=== PATIENT | female | born 1955 | race Caucasian/White ===

== ENCOUNTER 2017-06-18 09:47 | Emergency (ER) | payer BC, OTHER ==
--- NOTE | 2017-06-18 10:03 | ED PDOC ---
Arrival/HPI - General Chief Complaint: Abnormal Skin Integrity Time Seen by Provider: 06/18/17 09:53 Historian: Patient - History of Present Illness Narrative History of Present Illness (Text): 06/18/17 09:59 62 y/o female, no significant pmh, nkda, c/o itching rash all over the body x 2 days after possible insect bite. Itching rash, no fever or chills, no change in soap/clothing/detergent, no night sweat, no numbness or tingling, no bodyache , no joint pain, no change in soap/clothing/detergent, no other medical or psychological complaints. Past Medical History - Provider Review Nursing Documentation Reviewed: Yes - Infectious Disease Hx of Infectious Diseases: None - Reproductive Menopause: Yes - Psychiatric Hx Substance Use: No - Anesthesia Hx Anesthesia: No Hx Anesthesia Reactions: No Hx Malignant Hyperthermia: No Family/Social History - Physician Review Nursing Documentation Reviewed: Yes Family/Social History: Unknown Family HX Smoking Status: Never Smoked Hx Alcohol Use: No Hx Substance Use: No Allergies/Home Meds Allergies/Adverse Reactions: Allergies No Known Allergies Allergy (Verified 06/18/17 10:00) Review of Systems - Review of Systems Constitutional: absent: Fatigue, Fevers Eyes: absent: Vision Changes ENT: absent: Hearing Changes Respiratory: absent: SOB, Cough Cardiovascular: absent: Chest Pain Gastrointestinal: absent: Abdominal Pain, Diarrhea, Nausea, Vomiting Skin: Rash, Pruritis, Skin Lesions. absent: Laceration, Abscess, Ulcer, Cellulitis Neurological: absent: Headache Physical Exam Vital Signs Reviewed: Yes Vital Signs Temp Pulse Resp BP Pulse Ox 06/18/17 09:54 98.6 F 72 20 126/84 99 Temperature: Afebrile Blood Pressure: Normal Pulse: Regular Respiratory Rate: Normal Appearance: Positive for: Well-Appearing, Non-Toxic, Comfortable Pain Distress: None Mental Status: Positive for: Alert and Oriented X 3 - Systems Exam Head: Present: Atraumatic, Normocephalic Pupils: Present: PERRL Extroacular Muscles: Present: EOMI Conjunctiva: Present: Normal Mouth: Present: Moist Mucous Membranes Neck: Present: Normal Range of Motion Respiratory/Chest: Present: Clear to Auscultation, Good Air Exchange. No: Respiratory Distress, Accessory Muscle Use Cardiovascular: Present: Regular Rate and Rhythm, Normal S1, S2. No: Murmurs Abdomen: Present: Normal Bowel Sounds. No: Tenderness, Distention, Peritoneal Signs Back: Present: Normal Inspection Upper Extremity: Present: Normal Inspection. No: Cyanosis, Edema Lower Extremity: Present: Normal Inspection. No: Edema Neurological: Present: GCS=15, Speech Normal, Motor Func Grossly Intact, Gait Normal, Memory Normal Skin: Present: Warm, Dry, Rashes (visible patchy blanchable hives approx. [id number] noted on the bilateral upper and lower extremities/trunk/posterior neck , no periorbital swelling and no angioedema, no bullseye or target signs, no ulcers, no cellulitis or streaking. ), Normal Color Psychiatric: Present: Alert, Oriented x 3, Normal Insight, Normal Concentration Medical Decision Making ED Course and Treatment: 06/18/17 10:02 -Discharge home with benadryl, pepcid, prednisone, keep the skin cool and dry, avoid tight clothing, avoid possible allergen, follow up with your own pmd and commercial plumber within 2 days, return to the ER for any new or worsening signs or symptoms. - PA / M[employer]SM[employer] / Resident Statement / has reviewed & agrees with the documentation as recorded. Disposition/Present on Arrival - Present on Arrival Any Indicators Present on Arrival: No History of DVT/PE: No History of Uncontrolled Diabetes: No Urinary Catheter: No History of Decub. Ulcer: No History Surgical Site Infection Following: None - Disposition Have Diagnosis and Disposition been Completed?: Yes Diagnosis: Urticaria Disposition: HOME/ ROUTINE Disposition Time: 10:03 Patient Plan: Discharge Condition: GOOD Additional Instructions: -Discharge home with benadryl, pepcid, prednisone, keep the skin cool and dry, avoid tight clothing, avoid possible allergen, follow up with your own pmd and commercial plumber within 2 days, return to the ER for any new or worsening signs or symptoms. Prescriptions: DiphenhydrAMINE [Benadryl] 50 mg PO QID PRN #20 cap PRN Reason: Other Famotidine [Pepcid] 20 mg PO BID #14 tab predniSONE [Prednisone] 2 tab PO DAILY #10 tab Referrals: Lb Espinoza MD [Staff Provider] - Follow up with primary Forms: [employer] (Latvian), WORK NOTE
[2017-06-18 10:07] VITALS: BP 126/84; PULSE 72; RESP 20; TEMP 98.6; O2SAT 99; BMI 28.3
== END 2017-06-18 10:20 | disposition home or self-care (01) ==
LOC: ED 09:47
DX: L50.9 Urticaria, unspecified (principal)

== ENCOUNTER 2017-06-23 10:57 | Emergency (ER) | payer BC ==
[2017-06-23 10:57] VITALS: BMI 28.3
[2017-06-23 11:09] VITALS: TEMP 99.3; O2SAT 97
--- NOTE | 2017-06-23 11:21 | ED PDOC ---
Arrival/HPI - General Chief Complaint: Upper Extremity Problem/Injury Time Seen by Provider: 06/23/17 11:10 Historian: Patient - History of Present Illness Narrative History of Present Illness (Text): 06/23/17 11:10 Tamika Thompson is a 62 year old female, who presents to the emergency department complaining of bilateral hand pain and swelling. 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 She states the right hand is more swollen compared to the left, and has pain when making a fist. Patient denies nausea, vomiting, diarrhea, fever. Of note, patient was seen in the emergency department three days ago, evaluated for rash and was prescribed Prednisone, Pepcid, and Benadryl. She reports that the rash has resolved from the rest of her body but has persisted in some areas around her wrists. Patient reports that she was called today as courtesy after that prior ED visit and was told to come to the ED if she had pain. Time/Duration: < week Symptom Onset: Sudden Symptom Course: Unchanged Past Medical History - Provider Review Nursing Documentation Reviewed: Yes - Infectious Disease Hx of Infectious Diseases: None - Psychiatric Hx Substance Use: No - Anesthesia Hx Anesthesia: No Hx Anesthesia Reactions: No Hx Malignant Hyperthermia: No Family/Social History - Physician Review Nursing Documentation Reviewed: Yes Family/Social History: Unknown Family HX Smoking Status: Never Smoked Hx Alcohol Use: No Hx Substance Use: No Allergies/Home Meds Allergies/Adverse Reactions: Allergies Penicillins Allergy (Verified 06/23/17 11:08) SWELLING Review of Systems - Review of Systems Constitutional: absent: Fevers Respiratory: absent: SOB, Cough Cardiovascular: absent: Chest Pain, Palpitations Gastrointestinal: absent: Abdominal Pain, Diarrhea, Nausea, Vomiting Musculoskeletal: Arthralgias, Other (bilateral hand swelling and pain ). absent : Back Pain, Neck Pain, Joint Swelling Skin: Rash (resolved) Neurological: absent: Headache Physical Exam Vital Signs Reviewed: Yes Vital Signs Temp Pulse Resp BP Pulse Ox 06/23/17 12:07 86 18 113/71 97 06/23/17 11:05 99.3 F 94 H 16 115/78 97 Temperature: Afebrile Blood Pressure: Normal Pulse: Tachycardic Respiratory Rate: Normal Appearance: Positive for: Well-Appearing, Non-Toxic, Comfortable Pain Distress: None Mental Status: Positive for: Alert and Oriented X 3 - Systems Exam Head: Present: Atraumatic, Normocephalic Pupils: Present: PERRL Extroacular Muscles: Present: EOMI Mouth: Present: Moist Mucous Membranes Neck: Present: Normal Range of Motion Upper Extremity: Present: Normal Inspection, Normal ROM, NORMAL PULSES (intact) , Swelling (mild swelling on dorsum of right hand ), Neurovascularly Intact, Norm 2-Pt Discrimination, Other (mild decrease motion on right hand. NROM on left ). No: Cyanosis, Edema, Tenderness, Erythema (no warmth), Temperature Abnormalties Neurological: Present: GCS=15, CN II-XII Intact, Speech Normal Skin: Present: Warm, Dry, Normal Color. No: Rashes Psychiatric: Present: Alert, Oriented x 3, Normal Insight, Normal Concentration Medical Decision Making ED Course and Treatment: 06/23/17 Impression: 62 year old female with mild swelling on dorsum of right hand, mild decreased ROM. No tenderness, and NROM on left hand with no swelling and pulses intact. Plan: -- Bilateral hand x-ray -- Toradol -- Reassess and disposition Prior Visits: Notes and results from previous visits were reviewed. On 06/18/2017 patient came in complaining of bilateral hand pain. Patient was discharged with prescription of Prednisone, Pecid, and Benadryl. Progress Notes: 06/23/17 12:05 Hand x-ray: Creator : Doroteo James MD FINDINGS: BONES:Right Hand: No evidence of fracture Left Hand: No evidence of fracture JOINTS:Right Hand: Mild degenerative changes at the base of the thumb Left Hand: As above SOFT TISSUES: Right Hand: Normal. Left Hand: Normal. OTHER FINDINGS: None. IMPRESSION: No acute findings 06/23/17 13:20 Ultrasound negative for DVT. Patient is well appearing and afebrile. Non- traumatic injury. Neurovascularly intact. No redness. Likely overuse injury. Patient's rash is resolved. Will dc with antibiotics and PMD follow-up. - RAD Interpretation Radiology Orders: 06/23/17 11:19 HAND 3 VIEWS BI [RAD] Stat 06/23/17 12:02 DUPLEX UPPER EXTRM VEIN RIGHT [US] Stat [employer]: Radiologist - Medication Orders Current Medication Orders: Discontinued Medications Ketorolac Tromethamine (Toradol) 60 mg IM STAT STA Stop: 06/23/17 11:21 Last Admin: 06/23/17 11:29 Dose: 60 mg MAR Pain Assessment Document 06/23/17 11:29 RI (Rec: 06/23/17 11:29 RI [id number]) Pain Reassessment Is this a pain reassessment? No Sleep Is patient sleeping during reassessment? No Presence of Pain Presence of Pain Yes Pain Scale Used Pain Scale Used Numeric Location Left, Right or Bilateral Bilateral Pain Location Body Site Wrist Hand Description Description Throbbing Intensity of Pain at present 7 Acceptable Level of Pain 2 Pain Behavior Guarding Facial Grimacing Aggravating Factors Changing Position Alleviating Factors Medication IM Administration Charges Document 06/23/17 11:29 RI (Rec: 06/23/17 11:29 RI [id number]) Injection Site MAR Injection Site Left Gluteus Jean Charges for Administration # of IM Administrations 1 - Scribe Statement The provider has reviewed the documentation as recorded by the Scribe Sadaf Alba Provider Scribe Attestation: All medical record entries made by the Scribe were at my direction and personally dictated by me. I have reviewed the chart and agree that the record accurately reflects my personal performance of the history, physical exam, medical decision making, and the department course for this patient. I have also personally directed, reviewed, and agree with the discharge instructions and disposition. Disposition/Present on Arrival - Present on Arrival Any Indicators Present on Arrival: No History of DVT/PE: No History of Uncontrolled Diabetes: No Urinary Catheter: No History of Decub. Ulcer: No History Surgical Site Infection Following: None - Disposition Have Diagnosis and Disposition been Completed?: Yes Diagnosis: Hand pain Disposition: HOME/ ROUTINE Disposition Time: 13:22 Patient Plan: Discharge Patient Problems: Current Active Problems Problem Status Onset Hand pain Acute Condition: GOOD Additional Instructions: Take motrin for pain. Follow-up with PMD within 2 days. Return to ED if condition worsens. Take full course of antibiotics. Prescriptions: Clindamycin [Cleocin] 300 mg PO TID #60 cap Forms: [facility] (E[place]an)
--- NOTE | 2017-06-23 12:05 | RAD ---
PROCEDURE: Bilateral hand radiographs. HISTORY: L hand pain COMPARISON: None. FINDINGS: BONES: Right Hand: No evidence of fracture Left Hand: No evidence of fracture JOINTS: Right Hand: Mild degenerative changes at the base of the thumb Left Hand: As above SOFT TISSUES: Right Hand: Normal. Left Hand: Normal. OTHER FINDINGS: None. IMPRESSION: No acute findings
[2017-06-23 12:08] VITALS: RESP 18
[2017-06-23 14:09] VITALS: BP 132/77; PULSE 80
--- NOTE | 2017-06-24 09:28 | US ---
PROCEDURE: Right upper extremity venous US CLINICAL HISTORY: Arm pain and swelling Evaluate for deep venous thrombosis. PHYSICIAN(S): Param Price M.D FINDINGS: The visualized rightinternal jugular vein is sonographically normal and compressible. No evidence of obstruction or thrombus is seen. The visualized segments of the right subclavian vein are patent with normal waveforms. No sonographic evidence of obstruction or thrombosis is seen. The visualized deep venous system of the proximal right upper extremity is sonographically normal and compressible. IMPRESSION: 1. No sonographic evidence for deep venous thrombosis in the visualized segments of the right upper extremity.
== END 2017-06-23 13:55 | disposition home or self-care (01) ==
LOC: ED 10:57
DX: M79.642 Pain in left hand (principal); M79.641 Pain in right hand
CPT/HCPCS: 73130; 93971; 96372; 99284; J1885